=== PATIENT | male | born 1980 | race Caucasian/White ===

== ENCOUNTER 2025-01-17 19:57 | Emergency (ER) | payer SELFPAY ==
[~2025-01-17] VITALS: Ht 180.3 cm; Wt 106.6 kg
[2025-01-17 20:15] VITALS: BP 158/98
[2025-01-17] MEDS ORDERED: Ketorolac Tromethamine 30mg Vial IV ONE (21:15)
[2025-01-17] MEDS ORDERED: NS 1,000 ML IV SCH (21:15)
[2025-01-17 21:54] LABS: Albumin, Blood 3.8 g/dL (3.4-5.0); Albumin/Globulin Ratio 1.2 (0.8-1.8); Bilirubin, Total 0.7 mg/dL (0.1-1.0); Bun/Creatinine Ratio 13.7 (12.0-20.0); Calcium, Blood 8.7 mg/dL (8.5-10.1); Creatinine, Blood 0.73 mg/dL (0.60-1.20); Globulin, Blood 3.1 g/dL (2.2-4.0); Potassium, Blood 3.8 mmol/L (3.5-5.5); Total Protein, Blood 6.9 g/dL (6.4-8.2)
[2025-01-17 22:01] LABS: BASOPHILS ABSOLUTE AUTO 0.02 K/mm3 (0.00-0.23); BASOPHILS PERCENT AUTO 0 % (0-2); EOSINOPHILS ABSOLUTE AUTO 0.03 K/mm3 (0.00-0.68); EOSINOPHILS PERCENT AUTO 0 % (0-6); Hematocrit 43.2 % (37.0-53.0); Hemoglobin 15.5 g/dL (13.5-17.5); IMMATURE GRAN ABSOLUTE AUTO 0.02 K/mm3 (0.00-0.10); IMMATURE GRAN PERCENT AUTO 0 % (0-1); LYMPHOCYTES ABSOLUTE AUTO 1.13 K/mm3 (0.84-5.20); LYMPHOCYTES PERCENT AUTO 12 % (21-46); MONOCYTES ABSOLUTE AUTO 0.38 K/mm3 (0.16-1.47); MONOCYTES PERCENT AUTO 4 % (4-13); Mean Corpuscular HGB 32.4 pg (26.0-34.0); Mean Corpuscular HGB Conc 35.9 g/dL (31.5-36.5); Mean Corpuscular Volume 90 fL (80-100); Mean Platelet Volume 9.5 fL (9.1-12.4); NEUTROPHILS ABSOLUTE AUTO 7.93 K/mm3 (1.96-9.15); NEUTROPHILS PERCENT AUTO 83 % (41-73); Platelet Count 238 K/mm3 (150-400); RDW Coefficient Variation 11.9 % (11.7-14.2); RDW Standard Deviation 39.4 fL (35.1-46.3); Red Blood Cell Count 4.79 M/mm3 (4.30-5.90); White Blood Cell Count 9.51 K/mm3 (4.00-11.30)
[2025-01-17 22:17] LABS: Source, Urine Clean Catch
[2025-01-17 22:32] LABS: Bilirubin, Urine Neg (Neg); Blood, Urine Neg (Neg); Glucose Qualitative, Urine Neg (Neg); Ketones, Urine 3+ (Neg); Leukocyte Esterase, Urine Neg (Neg); Nitrite, Urine Neg (Neg); Protein, Urine Neg (Neg); Urobilinogen, Urine NORM (Normal)
[2025-01-17 23:09] LABS: Appearance, Urine Clear (Clear); Color, Urine Yellow (P-Yellow)
[2025-01-17] MEDS ORDERED: Mag Hydrox/AL Hydrox/Simeth 30 ML UDC PO ONE (23:20)
[2025-01-17] MEDS ORDERED: Lidocaine 2% Viscous Soln 15 ML UDC PO ONE (23:20)
[2025-01-17] MEDS ORDERED: Cyclobenzaprine HCl 10 MG Tab PO ONE (23:20)
[2025-01-17] MEDS ORDERED: CYCL10 PO (23:35)
== END 2025-01-17 23:58 | disposition home or self-care (01) ==
LOC: ER 19:57
PROVIDERS: Student in an Organized Health Care Education/Training Program
DX: K21.9 Gastro-esophageal reflux disease without esophagitis (principal); M54.50 Low back pain, unspecified; G89.29 Other chronic pain; E87.1 Hypo-osmolality and hyponatremia
CPT/HCPCS: 74177; 80053; 81003; 83690; 85025; 96361; 96374-59; 99284-25; A9270; J1885; J7030; Q9967